=== PATIENT | male | born 1970 | race Caucasian/White ===

== ENCOUNTER 2020-12-04 07:52 | Day surgery (SDC) | payer OTHER ==
[~2020-12-04 07:52] MED LIST: BUPIVACAINE 0.5%-EPI 1:200000 PF 30 ML VIAL ONE; LIDOCAINE-MPF 1% 30 ML VIAL ONE
[2020-12-04] MEDS ORDERED: LACTATED RINGERS 1,000 ML IV ONE ×2 (07:59→12:27)
[2020-12-04] MEDS ORDERED: ceFAZolin 2 GM/50 ML 2 GM/50 ML BAG IV ONE (08:02)
--- NOTE | 2020-12-04 08:46 | ANESTHESIA ---
Pre-Anesthesia VS, & Labs - Diagnosis bilateral inguinal hernias - Procedure bilateral inguinal hernia repair, laparoscopic Vital Signs: Temp Pulse Resp BP Pulse Ox 36.2 C L 75 16 165/100 H 97 12/04/20 08:07 12/04/20 08:07 12/04/20 08:07 12/04/20 08:07 12/04/20 08:07 Height: 6 ft 3 in Weight (kg): 100 kg Body Mass Index: 27.5 BMI Classification: Overweight - NPO >8 hours Home Medications and Allergies Home Medications: Ambulatory Orders Atorvastatin Calcium 40 mg PO DAILY 12/01/20 Omeprazole [PriLOSEC] 40 mg PO BID 12/01/20 Atorvastatin Calcium 40 mg PO DAILY 12/01/20 Omeprazole [PriLOSEC] 40 mg PO BID 12/01/20 Allergies/Adverse Reactions: Allergies Allergy/AdvReac Type Severity Reaction Status Date / Time No Known Drug Allergies Allergy Verified 12/01/20 09:24 Anes History & Medical History - Anesthetic History Anesthesia Complications: reports: No previous complications - Medical History Cardiovascular: reports: High cholesterol Pulmonary: reports: Sleep apnea, CPAP use Gastrointestinal: reports: GERD, Diverticulitis Urinary: reports: None Musculoskeletal: reports: Osteoarthritis Endocrine/Autoimmune: reports: None Skin: reports: None Smoking Status: Never smoker Psychosocial: reports: Alcohol (socially) History of Cancer?: No - Surgical History General: reports: Colonoscopy, EGD Eyes Ears Nose Throat (EENT): reports: Other (fess) Exam General: Alert Dental: WNL Mouth Opening: Greater than 4 Fingerbreadths Mallampati classification: II Thyromental Distance: greater than 6 cm Respiratory: Lungs clear Cardiovascular: Regular rate Plan Anesthesia Type: General Consent for Procedure(s) Verified and Reviewed: Yes Code Status: Attempt Resuscitation ASA classification: 2-Mild systemic disease Is this case an emergency?: No
[2020-12-04] MEDS ORDERED: HYDROmorphone 0.5 MG/0.5 ML SYRINGE IVP PRN (08:48)
[2020-12-04] MEDS ORDERED: ONDANSETRON 4 MG/2 ML VIAL IVP PRN ×2 (08:48→12:26)
[2020-12-04] MEDS ORDERED: fentaNYL 100 MCG/2 ML VIAL IVP PRN (08:48)
[2020-12-04] MEDS ORDERED: ATROPINE ABBOJECT 1 MG/10 ML SYRINGE IVP PRN (08:48)
[2020-12-04] MEDS ORDERED: ePHEDrine 50 MG/ML VIAL IVP PRN (08:48)
[2020-12-04] MEDS ORDERED: METOCLOPRAMIDE 10 MG/2 ML VIAL IVP PRN (08:48)
[2020-12-04] MEDS ORDERED: MORPHINE 2 MG/ML CARPUJECT IVP PRN (08:48)
[2020-12-04] MEDS ORDERED: NALOXONE 0.4 MG/ML VIAL IVP PRN (08:48)
[2020-12-04] MEDS ORDERED: ceFAZolin 1 GM VIAL ONE (08:50)
[2020-12-04] MEDS ORDERED: SODIUM CHLORIDE 0.9% 10 ML VIAL IVP ONE (08:50)
[2020-12-04] MEDS ORDERED: MIDAZOLAM 2 MG/2 ML VIAL ONE (08:51)
[2020-12-04] MEDS ORDERED: fentaNYL 100 MCG/2 ML VIAL ONE ×2 (08:52→09:36)
[2020-12-04] MEDS ORDERED: DEXAMETHASONE 4 MG/ML VIAL ONE (08:52)
[2020-12-04] MEDS ORDERED: ROCURONIUM 50 MG/5 ML VIAL ONE ×2 (08:52→10:38)
[2020-12-04] MEDS ORDERED: ONDANSETRON 4 MG/2 ML VIAL ONE (08:52)
[2020-12-04] MEDS ORDERED: PROPOFOL 200 MG/20 ML VIAL IVP ONE (08:54)
[2020-12-04] MEDS ORDERED: LIDOCAINE-MPF 2% 5 ML VIAL ONE (08:54)
[2020-12-04] MEDS ORDERED: LACTATED RINGERS 1,000 ML IV SCH (09:00)
[2020-12-04] MEDS ORDERED: ACETAMINOPHEN 1,000 MG/100 ML 100 ML IV ONE (09:23)
[2020-12-04] MEDS ORDERED: LIDOCAINE 2%-EPI 1:100000 20 ML MDV SUBQ ONE ×2 (09:48)
[2020-12-04] MEDS ORDERED: BUPIVACAINE 0.5% PF 30 ML VIAL INFIL ONE ×2 (09:48)
[2020-12-04] MEDS ORDERED: ceFAZolin 1 GM VIAL IR ONE (10:02)
[2020-12-04] MEDS ORDERED: ROPIVACAINE 0.5% PF 20 ML AMPULE ONE (11:38)
[2020-12-04] MEDS ORDERED: SUGAMMADEX 200 MG/2 ML VIAL IVP ONE (11:41)
--- NOTE | 2020-12-04 12:51 | OPERATIVE REPORT ---
Operative Report - General Procedure Date: 12/04/20 Planned Procedure: 1. Diagnostic laparoscopy 2. Adhesiolysis, laparoscopic 3. Open umbilical hernia repair 4. Transversus abdominis block 5. Left transabdominal preperitoneal inguinal hernia repair AKA Mary Lou 6. Right transabdominal preperitoneal inguinal hernia repair AKA Mary Lou Pre-Op Diagnosis: B/L inguinal hernias, symptomatic Procedure Performed: 1. Diagnostic laparoscopy 2. Adhesiolysis, laparoscopic 3. Open umbilical hernia repair 4. Transversus abdominis block 5. Left transabdominal preperitoneal inguinal hernia repair AKA Mary Lou 6. Right transabdominal preperitoneal inguinal hernia repair AKA Mary Lou Post Op Diagnosis: Same; umbilical hernia - Procedure Note Primary Surgeon: Alphonse Secondary Surgeon: Arely Anesthesia Provider: Jacqueline Anesthesia Technique: General ET tube, Local, Regional block Pathology: NONE Estimated Blood Loss (mL): 20 Indications: See EMR Findings: See below Complications: NONE - Other Other Information/Narrative: Description of procedure: Patient was taken to the operating room placed supine on the operating table. Informed consent was already obtained. Patient was induced for general endotracheal anesthesia. Patient at this time was placed for Queen catheter. Patient was offloaded and padded. The patient was placed supine with arms tucked at the sides. After obtaining adequate anesthesia, the patient's abdomen was prepped and draped in standard sterile fashion. The patient was placed in the Trendelenburg position. Timeout was called and agreed to by all in the room. Patient was dosed with perioperative and antibiotics within 1 hour of incision. A plan access point was incised periumbilical, circumlinear. An incision was made sharply. Skin and subcutaneous tissues were divided using Bovie electrocautery. Fascia was encountered it was sharply divided. Muscle was bluntly divided. Posterior fascia was elevated and sharply divided. Abdominal cavity was entered without incident. Patient had a [place] umbilical hernia for which a plan primary open repair would be performed at the end. There were the following notable findings: 1. Large direct and indirect hernia on the left 2. Large direct and indirect hernia on the right 3. Adhesions of the left lower quadrant from historic diverticular episodes however no active inflammatory changes Two additional 5 mm trocars were placed RIGHT lateral to the rectus sheath under direct laparoscopic vision. Both inguinal regions were inspected and the median umbilical ligament, medial umbilical ligament, and lateral umbilical fold were identified. We proceeded with transabdominal preperitoneal laparoscopic repair of left inguinal hernia first. The median umbilical ligament was divided sharply with electrocautery to achieve optimal exposure. The peritoneum was incised with endoscopic scissors along a line 2-4 cm above the superior edge of the hernia defect, extending from the median umbilical ligament to the anterior superior iliac spine. The peritoneal flap was mobilized inferiorly using blunt and sharp dissection. The inferior epigastric vessels were exposed, and the pubic symphysis was identified. Suhail's ligament was dissected to its junction with the femoral vein. The dissection was continued inferiorly to the iliopubic tract, with care taken to avoid injury to the femoral branch of the genitofemoral nerve and the lateral femoral cutaneous nerve. The cord structures were carefully skeletonized. The direct hernia sac was identified and reduced by gentle traction. The indirect hernia sac was noted to be large and was therefore carefully dissected off the cord structures and into the abdominal cavity. A large piece of mesh (left Bard 3D max extra-large) was rolled longitudinally into a compact cylinder and passed through the Her trocar. The cylinder was placed along the inferior aspect of the working space and unrolled into place to completely cover the direct, indirect, and femoral spaces. The mesh was tacked with permanent tacker into place. The inferior border of the mesh was tacked to Suhail's ligament medially from the opposite pubic tubercle to the level of the ipsilateral femoral vein. The medial and lateral borders were then situated in the lateral border was tacked singly lateral appearing exceedingly well approximated in place. The lipoma of the cord on the left was left in situ as was the sac and this was planned to be incorporated into the peritoneal closure to prevent any recurrence having been reduced into the abdominal cavity. At this time we proceeded to address the right inguinal hernia. Two additional 5-mm trocars were placed left lateral to the rectus sheath under direct laparoscopic vision. Both inguinal regions were inspected and the median umbilical ligament, medial umbilical ligament, and lateral umbilical fold were identified. We proceeded with transabdominal preperitoneal laparoscopic repair of right inguinal hernia, symptomatic. The median umbilical ligament was divided sharply with electrocautery to achieve optimal exposure. The peritoneum was incised with endoscopic scissors along a line 2-4 cm above the superior edge of the hernia defect, extending from the median umbilical ligament to the anterior superior iliac spine. The peritoneal flap was mobilized inferiorly using blunt and sharp dissection. The inferior epigastric vessels were exposed, and the pubic symphysis was identified. Suhail's ligament was dissected to its junction with the femoral vein. The dissection was continued inferiorly to the iliopubic tract, with care taken to avoid injury to the femoral branch of the genitofemoral nerve and the lateral femoral cutaneous nerve. The cord structures were carefully skeletonized. The direct hernia sac was identified and reduced by gentle traction. The indirect hernia sac was noted to be large and was therefore carefully dissected off the cord structures and into the abdominal cavity. A large piece of mesh (right Bard 3D max extra-large) was rolled longitudinally into a compact cylinder and passed through the Her trocar. The cylinder was placed along the inferior aspect of the working space and unrolled into place to completely cover the direct, indirect, and femoral spaces. The mesh was tacked with permanent tacker into place. The inferior border of the mesh was tacked to Suhail's ligament medially from the opposite pubic tubercle to the level of the ipsilateral femoral vein. The medial and lateral borders were then situated in the lateral border was tacked singly lateral appearing exceedingly well approximated in place. The lipoma of the cord on the right was left in situ as was the sac and this was planned to be incorporated into the peritoneal closure to prevent any recurrence having been reduced into the abdominal cavity. The peritoneal flap was closed bilaterally. This was achieved with V-Loc suture running laparoscopic intracorporeal. Please note as listed above the lipomas of the cord and the sacs were used to reinforce the peritoneal closure and prevent any recurrence. Areas were hemostatic without any complication. After ensuring adequate hemostasis using electrocautery, space. The trocars were removed, and the pneumoperitoneum evacuated. The trocar incisions were closed using skin staple and dry dressing applied. Please note the umbilical defect was closed with multiple [id number]'s of 0 Vicryl. Umbilical plasty was performed. Umbilical incision was performed for skin staple to reapproximate the skin edges. The patient tolerated the procedure well and was taken to the postanesthesia care unit in stable condition. I was the present for the entirety of this operative intervention. All counts were correct for sponges needles and instrument were correct inclusion of his operative case. Please note that voice recognition software was used to transcribe this note and inadvertent errors might persist in spite of review and editing. I am obliged to you for your attention. I am thankful to you for allowing me to participate with you in this care of this patient.
[2020-12-04] MEDS: D5NS W/20 MEQ KCL 1,000 ML IV SCH ×2 (13:35→21:30)
[2020-12-04] MEDS: HYDROmorphone 0.5 MG/0.5 ML SYRINGE IVP PRN ×2 (13:35→14:45)
--- NOTE | 2020-12-04 14:06 | ANESTHESIA POST OP EVALUATION ---
Anesthesia Post Eval - Post Anesthesia Eval Vitals: Last Vital Signs Temp 37.0 C 12/04/20 13:56 Pulse 79 12/04/20 13:56 Resp 18 12/04/20 13:56 BP 143/81 H 12/04/20 13:56 Pulse Ox 96 12/04/20 13:56 CV Function Including HR & BP: Stable Pain Control: Satisfactory Nausea & Vomiting: Negative Mental Status: Baseline Respiratory Status: Airway Patent Hydration Status: Satisfactory Anesthesia Complications: None
[2020-12-04] MEDS: KETOROLAC 30 MG/ML VIAL IVP SCH (17:52)
[2020-12-04] MEDS: methocarbamoL 500 MG TABLET PO SCH (17:53)
[2020-12-04] MEDS: METOCLOPRAMIDE 10 MG/2 ML VIAL IVP SCH (17:58)
[2020-12-04] MEDS: oxyCODONE 5 MG TABLET PO PRN ×2 (18:29→23:01)
[2020-12-04] MEDS: DOCUSATE SODIUM 100 MG CAPSULE PO SCH (21:30)
[2020-12-04] MEDS: polyethylene glycoL 3350 17 GM PACKET PO SCH (21:30)
[2020-12-05] MEDS: methocarbamoL 500 MG TABLET PO SCH ×2 (00:15→05:37)
[2020-12-05] MEDS: METOCLOPRAMIDE 10 MG/2 ML VIAL IVP SCH ×2 (00:15→05:37)
[2020-12-05] MEDS: KETOROLAC 30 MG/ML VIAL IVP SCH ×2 (00:15→05:37)
[2020-12-05] MEDS: oxyCODONE 5 MG TABLET PO PRN ×3 (03:22→11:16)
[2020-12-05] MEDS: D5NS W/20 MEQ KCL 1,000 ML IV SCH (05:37)
[2020-12-05 10:53] VITALS: BP 120/73
[2020-12-05] MEDS: polyethylene glycoL 3350 17 GM PACKET PO SCH (11:10)
[2020-12-05] MEDS: DOCUSATE SODIUM 100 MG CAPSULE PO SCH (11:11)
== END 2020-12-05 11:30 | disposition home or self-care (01) ==
LOC: SDS 07:52 → MS2 13:13 → SDS 12-05 11:30
PROVIDERS: ATTEND Surgery
DX: K40.20 Bilateral inguinal hernia, without obstruction or gangrene, not specified as recurrent (principal); K42.9 Umbilical hernia without obstruction or gangrene; E66.3 Overweight; Z68.27 Body mass index [BMI] 27.0-27.9, adult; G47.30 Sleep apnea, unspecified
CPT/HCPCS: 49650; A9270; C1781; J0131; J0690; J1170; J2765; J7120; 0202U

== ENCOUNTER 2020-12-18 08:18 | Emergency (ER) | payer OTHER ==
[2020-12-18] MEDS ORDERED: IOPAMIDOL-300 50 ML VIAL ONE (08:56)
[2020-12-18] MEDS ORDERED: IOVERSOL 320 100 ML VIAL IVP ONE ×2 (08:56→12:23)
[2020-12-18 09:01] LABS: BASOPHILS % (AUTO) 0.3 %; EOSINOPHILS # (AUTO) 0.2 10^3/uL (0.0-0.7); EOSINOPHILS % (AUTO) 1.3 %; HCT - HEMATOCRIT 39.5 % (42.0-52.0); HGB - HEMOGLOBIN 13.6 g/dL (14.0-18.0); LYMPHOCYTES # (AUTO) 1.4 10^3/uL (1.5-3.5); LYMPHOCYTES % (AUTO) 9.9 %; MEAN CORPUSCULAR HEMOGLOBIN 30.4 pg (27.0-31.0); MEAN CORPUSCULAR HGB CONC 34.4 g/dL (32.0-36.0); MEAN CORPUSCULAR VOLUME 88.2 fL (80.0-94.0); MEAN PLATELET VOLUME 8.5 fL (7.4-11.4); MONOCYTES # (AUTO) 0.7 10^3/uL (0.0-1.0); MONOCYTES % (AUTO) 4.9 %; NEUTROPHILS # (AUTO) 11.5 10^3/uL (1.5-6.6); NEUTROPHILS % (AUTO) 83.2 %; PLT - PLATELET COUNT 313 10^3/uL (130-450); RED BLOOD COUNT 4.48 10^6/uL (4.70-6.10); RED CELL DISTRIBUTION WIDTH 12.2 % (12.0-15.0); WHITE BLOOD COUNT 13.8 x10^3/uL (4.8-10.8)
[2020-12-18 09:12] LABS: ALBUMIN 4.6 g/dL (3.2-5.5); ALBUMIN/GLOBULIN RATIO 1.9 (1.0-2.2); BILIRUBIN,TOTAL 1.5 mg/dL (0.2-1.0); POTASSIUM 3.8 mmol/L (3.5-5.0)
[2020-12-18 09:15] LABS: BILIRUBIN,URINE NEGATIVE (NEGATIVE); GLUCOSE, URINE (UA) NEGATIVE (NEGATIVE); KETONES,URINE (UA) NEGATIVE (NEGATIVE); LEUKOCYTE ESTERASE, URINE NEGATIVE (NEGATIVE); NITRITE,URINE NEGATIVE (NEGATIVE); OCCULT BLOOD,URINE TRACE-INTA (NEGATIVE); PH,URINE 5.5 PH (5.0-7.5); PROTEIN,URINE NEGATIVE (NEGATIVE); UROBILINOGEN,URINE 0.2 (NORMAL) E.U./dL (NORMAL)
[2020-12-18 09:24] LABS: CLARITY,URINE CLEAR (CLEAR)
[2020-12-18] MEDS ORDERED: KETOROLAC 30 MG/ML VIAL IVP STA (09:33)
--- NOTE | 2020-12-18 10:42 | CT Report ---
PROCEDURE: Abdomen/Pelvis W INDICATIONS: lower abd pain post op CONTRAST: IV CONTRAST: Optiray 320 ml: 100 PO CONTRAST: *NO PO CONTRAST TECHNIQUE: After the administration of oral and IV contrast, 5 mm thick sections acquired from the diaphragms to the symphysis. 5 mm thick coronal and sagittal reformats were acquired. For radiation dose reducti on, the following was used: automated exposure control, adjustment of mA and/or kV according to sarah ent size. COMPARISON: None. FINDINGS: Image quality: Excellent. ABDOMEN: Lung bases: Lung bases are clear. Heart size is normal. Solid organs: Liver is enlarged with steatosis. The spleen is normal in size and enhancement. Gall bladder is unremarkable Biliary system is non dilated. Pancreas enhances normally. No adrenal nodu les. Kidneys demonstrate normal size and enhancement, without hydronephrosis. Peritoneum and bowel: Bowel loops demonstrate normal wall thickness and caliber. No free fluid or a ir. Colonic diverticula are present without inflammatory change. Nodes and vessels: No retroperitone al or mesenteric adenopathy by size criteria. Aorta and inferior vena cava are normal in size. Miscellaneous: No ventral hernias. PELVIS: Genitourinary: Bladder wall thickness is normal. Miscellaneous: Mild appearance of bilateral inguinal canal fluid, predominantly on the right. Mild fl uid is noted anterior abdomen bilaterally at origin of the inguinal canals. Bones: No suspicious bony lesions. No vertebral body compression fractures. IMPRESSION: 1. Mild fluid within the inguinal canals, right greater than left, as well as fluid focus at the orig ins of the inguinal canals in the anterior abdomen bilaterally. This may be postoperative. Appearance is not presently consistent with abscess. However, recommend continued interval follow-up as abscess development from seroma/phlegmon cannot be excluded. Reviewed by: Susan Romeo MD on 12/18/2020 10:41 AM PDT Approved by: Susan Romeo MD on 12/18/2020 10:41 AM PDT Station ID: [id number]
--- NOTE | 2020-12-18 10:55 | ED Physician Documentation ---
PD HPI ABD PAIN - Stated complaint Stated Complaint: POST OP COMP - Chief complaint Chief Complaint: Abd Pain - History obtained from History obtained from: Patient, Family - History of Present Illness Timing - onset: How many days ago (2) Timing - duration: Days (2) Timing - details: Gradual onset, Still present Quality: Sharp, Pain Location: RLQ, Suprapubic, LLQ Radiation: Improved by: Laying still Worsened by: Moving, Position, Palpation Associated symptoms: Constipation. 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 The night before last the patient began to experience some pain in his lower abdomen and pain with defecation and urination. He has been concerned about the possibility of infection. He was asked by his surgeon to come to the emergency department for evaluation. The patient's adds to the history that the patient has been overactive in the past 4 days with going up and down a ladder into his sailboat to fix it with a set of ratchet's in his hand. The patient indicates that he has been feeling well at the time he started doing that work. He has not had fever or vomiting. He has not otherwise been ill. Review of Systems Constitutional: denies: Fever Eyes: denies: Decreased vision Ears: denies: Ear pain Nose: denies: Congestion Throat: denies: Sore throat Cardiac: denies: Chest pain / pressure, Palpitations Respiratory: denies: Dyspnea, Cough GI: reports: Abdominal Pain, Constipation. denies: Nausea, Vomiting : reports: Hesitancy. denies: Dysuria, Frequency Skin: denies: Rash Musculoskeletal: denies: Neck pain, Back pain, Extremity pain Neurologic: denies: Generalized weakness, Focal weakness, Numbness PD PAST MEDICAL HISTORY - Past Medical History Past Medical History: Yes Cardiovascular: High cholesterol Respiratory: Sleep apnea, CPAP use Endocrine/Autoimmune: None GI: GERD, Diverticulitis : None HEENT: Chronic vision loss Psych: None Musculoskeletal: Osteoarthritis Derm: None - Past Surgical History General: Colonoscopy, EGD HEENT: Other - Present Medications Home Medications: Ambulatory Orders Medication Instructions Recorded Confirmed Atorvastatin Calcium 40 mg PO DAILY 12/01/20 12/18/20 Omeprazole [PriLOSEC] 40 mg PO BID 12/01/20 12/18/20 Docusate Sodium 100Mg Capsule 100 mg PO DAILY #60 cap 12/04/20 12/18/20 [Colace 100Mg Capsule] Tamsulosin [Flomax] 0.4 mg PO DAILY #30 cap 12/04/20 12/18/20 methocarbamoL [Robaxin] 500 mg PO Q6HR PRN #30 tablet 12/04/20 12/18/20 oxyCODONE [Roxicodone] 5 mg PO Q6H PRN #24 tablet 12/04/20 12/18/20 polyethylene glycoL 3350 [Miralax] 17 gm PO DAILY #238 ml 12/04/20 12/18/20 Ciprofloxacin HCl [Cipro] 500 mg PO BID #14 tablet 12/18/20 metroNIDAZOLE [Flagyl] 500 mg PO BID #14 tablet 12/18/20 - Allergies Allergies/Adverse Reactions: Allergies Allergy/AdvReac Type Severity Reaction Status Date / Time No Known Drug Allergies Allergy Verified 12/18/20 08:28 - Social History Does the pt smoke?: No Smoking Status: Never smoker PD ED PE NORMAL - Vitals Vital signs reviewed: Yes (Hypertensive) - General General: Alert and oriented X 3, No acute distress, Well developed/nourished - HEENT HEENT: Atraumatic, PERRL, EOMI - Cardiac Cardiac: RRR, No murmur - Respiratory Respiratory: No respiratory distress, Clear bilaterally - Abdomen Abdomen: Normal bowel sounds, Soft, Non distended, No organomegaly, Other (Mild suprapubic tenderness worse on the right than the left no guarding or rebound tenderness. 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 security 2-12 intact, No motor deficit, No sensory deficit, Normal speech Eye Opening: Spontaneous Motor: Obeys Commands Verbal: Oriented GCS Score: 15 - Psych Psych: Normal mood, Normal affect Results - Vitals Vitals: Vital Signs - 24 hr 12/18/20 12/18/20 12/18/20 08:25 10:23 11:09 Temperature 36.4 C L 37.1 C Heart Rate 93 67 71 Respiratory 16 16 18 Rate Blood Pressure 163/84 H 145/94 H 141/96 H O2 Saturation 98 98 97 Oxygen O2 Source Room air - Labs Labs: Laboratory Tests 12/18/20 12/18/20 12/18/20 08:50 08:53 08:53 WBC 13.8 H RBC 4.48 L Hgb 13.6 L Hct 39.5 L MCV 88.2 MCH 30.4 MCHC 34.4 RDW 12.2 Plt Count 313 MPV 8.5 Neut # (Auto) 11.5 H Lymph # (Auto) 1.4 L [place] # (Auto) 0.7 Eos # (Auto) 0.2 Baso # (Auto) 0.0 Absolute Nucleated RBC 0.00 Nucleated RBC % 0.0 Sodium 136 Potassium 3.8 Chloride 101 Carbon Dioxide 28 Anion Gap 7.0 BUN 14 Creatinine 1.0 Estimated GFR (MDRD) 79 L Glucose 130 H Calcium 9.0 Total Bilirubin 1.5 H AST 25 ALT 32 Alkaline Phosphatase 66 Total Protein 7.0 Albumin 4.6 Globulin 2.4 Albumin/Globulin Ratio 1.9 Lipase 25 Urine Color DARK YELLOW Urine Clarity CLEAR Urine pH 5.5 Ur Specific [place] 1.025 Urine Protein NEGATIVE Urine Glucose (UA) NEGATIVE Urine Ketones NEGATIVE Urine Occult Blood TRACE-INTA Urine Nitrite NEGATIVE Urine Bilirubin NEGATIVE Urine Urobilinogen 0.2 (NORMAL) Ur Leukocyte Esterase NEGATIVE Ur Microscopic Review NOT INDICATED Urine Culture Comments NOT INDICATED - Rads (name of study) CT abdomen and pelvis with oral and IV contrast Radiology: Prelim report reviewed (Impression: 1. Mild fluid within the inguinal canals, right greater than left, as well as fluid focus at the origins of the inguinal canals in the anterior abdomen bilaterally. This may be postoperative. Appearance is not presently consistent with abscess. ), Final report received (However, recommend continued interval follow-up as abscess development from seroma/phlegmon cannot be excluded.), EMP read indepedently, See rad report PD MEDICAL DECISION MAKING - ED course Complexity details: reviewed results, re-evaluated patient, considered differential, d/w patient, d/w family ED course: 50-year-old male with suprapubic pain postoperatively from an inguinal hernia repair is sent to the emergency department by the surgeon with concerns about the possibility of infection the patient has a history of diverticulitis and he is having left lower quadrant pain. The patient does have postoperative pain and I suspect this may be related to overexertion, however, on the patient's CT scan there is some evidence of some thickening of the colon. The patient has elevated white blood cell count. Dr. Cunha request we place the patient on Cipro and Flagyl. Departure - Departure Disposition: Home, Self Care Clinical Impression: Post-operative pain, Colitis Condition: Stable Instructions: ED Gastroenteritis Bacterial, ED Post Op Pain Follow-Up: Nicky Nice MD [Primary Care Provider] - Ji Cunha MD [Provider Admit Priv/Credential] - Prescriptions: Ciprofloxacin HCl [Cipro] 500 mg PO BID #14 tablet metroNIDAZOLE [Flagyl] 500 mg PO BID #14 tablet Discharge Date/Time: 12/18/20 11:11
[2020-12-18 11:09] VITALS: BP 141/96
[2020-12-18] MEDS ORDERED: IOPAMIDOL-300 50 ML VIAL PO ONE (12:23)
== END 2020-12-18 11:11 | disposition home or self-care (01) ==
LOC: ED 08:18
DX: G89.18 Other acute postprocedural pain (principal); R10.32 Left lower quadrant pain; R10.31 Right lower quadrant pain; K52.9 Noninfective gastroenteritis and colitis, unspecified
CPT/HCPCS: 36415; 74177; 80053; 81003; 83690; 85025; 96374; 99284; Q9967; 81001; 87086

== ENCOUNTER 2021-04-02 10:07 | Outpatient (CLI) | payer OTHER ==
[2021-04-02] MEDS ORDERED: IOVERSOL 320 100 ML VIAL IVP ONE ×2 (10:16→14:25)
[2021-04-02] MEDS ORDERED: IOVERSOL 320 50 ML VIAL ONE (10:16)
--- NOTE | 2021-04-02 12:37 | CT Report ---
PROCEDURE: Abdomen/Pelvis W INDICATIONS: DIVERTICULITIS CONTRAST: IV CONTRAST: Optiray 320 ml: 100 PO CONTRAST: Optiray 320 ml50 TECHNIQUE: After the administration of oral and intravenous contrast, 5 mm thick sections acquired from the diap hragms to the symphysis. 5 mm thick coronal and sagittal reformats were acquired. For radiation dos e reduction, the following was used: automated exposure control, adjustment of mA and/or kV accordin g to patient size. COMPARISON: CT abdomen/pelvis 12/18/2020 FINDINGS: Image quality: Excellent. ABDOMEN: Lung bases: Lung bases are clear. Heart size is normal. Solid organs: Liver is borderline in size. Gallbladder is unremarkable. Biliary system is non dilate d. Pancreas enhances normally. The spleen is normal in size. No adrenal nodules. Kidneys demonstra te normal size and enhancement, without hydronephrosis. Peritoneum and bowel: Scattered diverticula are seen in the colon without signs of acute diverticulit is. Normal appendix. No signs of bowel obstruction, stricture, or fistula formation. Nodes and vessel s: No retroperitoneal or mesenteric adenopathy by size criteria. Aorta and inferior vena cava are n ormal in size. Miscellaneous: No ventral hernias. PELVIS: Genitourinary: Bladder wall thickness is normal. Miscellaneous: Post surgical changes from bilateral inguinal hernia repairs. Previously seen fluid ad jacent to the inguinal canals has nearly completely resolved. Bones: No suspicious bony lesions. No vertebral body compression fractures. IMPRESSION: 1.Colonic diverticulosis without signs of active diverticulitis. 2.Postsurgical changes from bilateral inguinal hernia repairs. The previously seen fluid collections adjacent to the inguinal canals have nearly completely resolved. Reviewed by: Petr Dye MD on 04/02/2021 12:36 PM PDT Approved by: Petr Dye MD on 04/02/2021 12:36 PM PDT Station ID: [id number]
[2021-04-02] MEDS ORDERED: IOVERSOL 320 50 ML VIAL PO ONE (14:26)
== END 2021-04-02 10:08 | disposition home or self-care (01) ==
LOC: DI 10:07
PROVIDERS: ATTEND Surgery
DX: K57.30 Diverticulosis of large intestine without perforation or abscess without bleeding (principal)
CPT/HCPCS: 74177; Q9967

== ENCOUNTER 2021-06-21 06:55 | Outpatient (CLI) | payer OTHER ==
--- NOTE | 2021-06-21 09:10 | MRI Report ---
PROCEDURE: Lumbar Spine W/O INDICATIONS: PAIN IN THORACIC SPINE, CERVICALGIA, LOW BACK PAIN TECHNIQUE: Noncontrast sagittal T1 spin echo and T2 fast echo, sagittal STIR, axial T1 and T2 fast spin echo thr ough the lumbar spine. In cases with scoliosis, additional coronal T2 fast spin echo may be performe d. COMPARISON: None. FINDINGS: Image quality: Excellent. Alignment and Curvature: There is normal bony alignment. Bone Marrow: Marrow is of normal overall signal. No acute vertebral body compression fractures. Spinal Cord: Conus medullaris terminates at the T12-L1 level. Visualized cord demonstrates normal s ignal and size. Paraspinous Soft Tissues: No paravertebral masses. T12-L1: No canal stenosis or foraminal stenosis. L1-L2: Minimal disc bulge. No canal stenosis or foraminal stenosis. L2-L3: Mild disc bulge. Mild facet hypertrophy. Mild canal stenosis. Mild bilateral foraminal sten osis. L3-L4: Minimal disc bulge. Facet hypertrophy. Mild canal stenosis. Mild bilateral foraminal stenosi s. L4-L5: Bilateral facet hypertrophy. No canal stenosis or foraminal stenosis. L5-S1: Bilateral facet hypertrophy. No canal stenosis or foraminal stenosis. IMPRESSION: 1. Multilevel facet arthropathy. 2. There is mild canal stenosis at L2-L3 and L3-L4. Reviewed by: Naveen Monroy MD on 06/21/2021 9:09 AM PST Approved by: Naveen Monroy MD on 06/21/2021 9:09 AM PST Station ID: [id number]
--- NOTE | 2021-06-21 09:15 | MRI Report ---
PROCEDURE: Thoracic Spine W/O INDICATIONS: PAIN IN THORACIC SPINE, CERVICALGIA, LOW BACK PAIN TECHNIQUE: Noncontrast sagittal T1 spine echo and T2 fast spin echo, sagittal STIR, axial T1 and T2 fast spin ec ho through the thoracic spine. COMPARISON: None. FINDINGS: Image quality: Excellent. Alignment and Curvature: There is normal bony alignment. Bone Marrow: Marrow is of normal overall signal. No acute vertebral body compression fractures. Spinal Cord: Visualized spinal cord is normal in size and signal. Paraspinous Soft Tissues: No paravertebral masses. Miscellaneous: There are minimal multilevel disc bulges., And T3-T4, T4-T5, T5-T6, and T11-T12. On a xial images, central canal and foramina appear widely patent at all scanned levels. IMPRESSION: No evidence of thoracic canal stenosis or foraminal stenosis. Reviewed by: Naveen Monroy MD on 06/21/2021 9:14 AM PST Approved by: Naveen Monroy MD on 06/21/2021 9:14 AM PST Station ID: [id number]
--- NOTE | 2021-06-21 09:31 | MRI Report ---
PROCEDURE: Cervical Spine W/O INDICATIONS: PAIN IN THORACIC SPINE, CERVIALGIA, LOW BACK PAIN TECHNIQUE: Noncontrast sagittal T1 spin echo and T2 fast spin echo, sagittal STIR, foraminal oblique sagittal T2 fast spin echo, and axial gradient echo or T2 fast spin echo through the cervical spine. COMPARISON: None. FINDINGS: Image quality: Excellent. Alignment and Curvature: Trace degenerative anterolisthesis of C2 on C3. Bone Marrow: Marrow demonstrates normal overall signal. There is a superior endplate Schmorl's node at C7. There is mild discogenic endplate signal abnormality at C6-C7. Spinal Cord: Visualized spinal cord has normal size and signal. No cerebellar tonsillar herniation. Paraspinous Soft Tissues: No paravertebral masses. Prevertebral soft tissues are normal in thicknes s. C2-C3: Mild bilateral facet hypertrophy. No canal stenosis or foraminal stenosis. C3-C4: Minimal disc bulge. No canal stenosis or foraminal stenosis. C4-C5: Mild disc height loss. Mild diffuse disc bulge, abutting the ventral cord. No canal stenosis. AP diameter of the canal is 11.6 mm. Mild bilateral facet hypertrophy. There is moderate left forami nal narrowing with mild flattening deformity on the exiting left C5 nerve root. C5-C6: Minimal central posterior disc protrusion without canal stenosis. AP diameter of the canal is 11.6 mm. Bilateral facet hypertrophy. No significant foraminal stenosis. C6-C7: Mild diffuse disc bulge. Borderline canal stenosis. AP diameter of the canal is 10 mm. Mild t o moderate left foraminal stenosis. C7-T1: No canal stenosis. Mild bilateral foraminal stenosis. IMPRESSION: 1. Mild spondylitic change, including mild multilevel facet arthropathy. 2. Borderline canal stenosis at C6-C7. 3. There is moderate left foraminal narrowing at C4-C5. Reviewed by: Naveen Monroy MD on 06/21/2021 9:29 AM PST Approved by: Naveen Monroy MD on 06/21/2021 9:29 AM PST Station ID: [id number]
== END 2021-06-21 06:56 | disposition home or self-care (01) ==
LOC: DI 06:55
PROVIDERS: ATTEND Physician Assistant
DX: M51.84 Other intervertebral disc disorders, thoracic region (principal); M47.812 Spondylosis without myelopathy or radiculopathy, cervical region; M50.222 Other cervical disc displacement at C5-C6 level; M50.321 Other cervical disc degeneration at C4-C5 level; M48.02 Spinal stenosis, cervical region; M47.816 Spondylosis without myelopathy or radiculopathy, lumbar region; M47.817 Spondylosis without myelopathy or radiculopathy, lumbosacral region; M48.061 Spinal stenosis, lumbar region without neurogenic claudication

== ENCOUNTER 2022-01-20 09:03 | Outpatient (CLI) | payer OTHER ==
[2022-01-20] MEDS ORDERED: ALBUTEROL 1 PUFF INH STA (10:43)
== END 2022-01-20 09:04 | disposition home or self-care (01) ==
LOC: RT 09:03
PROVIDERS: ATTEND Physician Assistant
DX: R05.3 Chronic cough (principal)
CPT/HCPCS: 94060; 94727; 94729